=== PATIENT | male | born 1980 | race Hispanic/Latino ===

== ENCOUNTER 2018-12-19 21:01 | Emergency (ER) | payer BC ==
[2018-12-19] MEDS ORDERED: Dexamethasone 4 mg/ml Vial ONE (21:56)
[2018-12-19] MEDS ORDERED: Dexamethasone 4 MG TAB ONE (21:56)
[2018-12-19] MEDS ORDERED: Ibuprofen 800 MG TAB ONE (21:56)
--- NOTE | 2018-12-19 22:19 | RAD ---
TWO VIEWS RIGHT ELBOW: 12/19/18 HISTORY: Right elbow pain. FINDINGS: There is no evidence of a fracture or dislocation. No joint effusion is appreciated. However, there d oes appear to be mild soft tissue prominence at the posterior aspect of the elbow which may be relat ed to soft tissue swelling or fluid in the overlying bursa. No other findings. IMPRESSION: 1. No acute osseous abnormality right elbow. 2. Soft tissue swelling posterior to the olecranon process versus fluid in the region of the bur sa. POS: [facility]
== END 2018-12-19 22:03 | disposition home or self-care (01) ==
LOC: MADERS 21:01
DX: M70.21 Olecranon bursitis, right elbow (principal); F17.210 Nicotine dependence, cigarettes, uncomplicated; J45.909 Unspecified asthma, uncomplicated; Z76.0 Encounter for issue of repeat prescription
CPT/HCPCS: J1100; J8540